=== PATIENT | female | born 1995 | race Caucasian/White ===

== ENCOUNTER 2023-04-19 03:45 | Inpatient (IN) | payer OTHER ==
[2023-04-19] MEDS ORDERED: OXYTOCIN 30 UNITS in 0.9% NS 30 UNIT/500 ML INFUS.BAG IVPB ONE (08:27)
[2023-04-19] MEDS ORDERED: AMPICILLIN SODIUM 2 GM VIAL ONE (08:40)
[2023-04-19] MEDS ORDERED: AMPICILLIN - 2 GM in SODIUM CHLORIDE 100 ML IVPB ONE (08:40)
[2023-04-19] MEDS ORDERED: OXYTOCIN 30 UNITS in 0.9% NS 30 UNIT/500 ML INFUS.BAG IVPB SCH (08:45)
[2023-04-19] MEDS ORDERED: ELECTROLYTE-148 SOLN 1,000 ML IV SCH (08:45)
[2023-04-19 09:24] LABS: BASO % 0.2 % (0-2.0); EOS % 0.3 % (0-4.5); HEMATOCRIT 31.6 % (32.4-45.2); HEMOGLOBIN 10.3 GM/dL (10.7-15.3); LYMPH % 22.1 % (8-40); MCH 26.7 pg (25.7-33.7); MCHC 32.6 g/dl (32.0-36.0); MEAN PLT VOLUME 10.4 fl (7.5-11.1); MONO % 7.8 % (3.8-10.2); NEUT % 69.6 % (42.8-82.8); PLATELET COUNT 128 10^3/uL (134-434); RBC 3.85 M/mm3 (3.60-5.2); RDW 16.9 % (11.6-15.6)
[2023-04-19 09:33] LABS: INR 1.04 (0.83-1.09); PROTHROMBIN TIME (PATIENT) 12.1 SEC (9.7-13.0)
[2023-04-19 09:51] LABS: CALCIUM 9.6 mg/dL (8.5-10.1)
[2023-04-19 09:52] LABS: BLOOD UREA NITROGEN 7.7 mg/dL (7-18)
[2023-04-19 09:55] LABS: CREATININE 0.6 mg/dL (0.55-1.3)
[2023-04-19 10:58] VITALS: BMI 27.3
[2023-04-19] MEDS: AMPICILLIN - 1 GM in SODIUM CHLORIDE 100 ML IVPB SCH (14:23)
[2023-04-19] MEDS ORDERED: FENTANYL/BUPIVACAINE/NS/PF - PCEA - 50 ML DISP.SYRIN EP ONE (18:29)
[2023-04-19] MEDS ORDERED: BUPIVACAINE HCL/PF 0.25% (2.5MG/ML) 10 ML VIAL ONE (18:39)
[2023-04-19] MEDS ORDERED: LIDO 2%/EPI 1:200000 PRESRVFRE (20 ML SDVIAL) ONE (18:39)
[2023-04-19] MEDS ORDERED: NALOXONE HCL 0.4 MG/ML VIAL IVPUSH PRN (19:03)
[2023-04-19] MEDS ORDERED: FENTANYL/BUPIVACAINE/NS/PF - PCEA - 50 ML DISP.SYRIN EP SCH (19:15)
[2023-04-19] MEDS ORDERED: LIDOCAINE HCL 1% PRESERVATIVE FREE - 30ML VIAL ONE (20:29)
[2023-04-19] MEDS ORDERED: OXYTOCIN 20 UNITS in 0.9% NS 20 UNIT/1,000 ML INFUS.BAG IV ONE (20:29)
[2023-04-19] MEDS ORDERED: WITCH HAZEL 50% (TUCKS) 40 PAD/JAR PAD TP PRN (23:16)
[2023-04-19] MEDS ORDERED: BISACODYL 10 MG SUPP.RECT RC PRN (23:16)
[2023-04-19] MEDS ORDERED: METHYLERGONOVINE MALEATE 0.2 MG/1 ML AMP IM PRN (23:16)
[2023-04-19] MEDS ORDERED: BENZOCAINE 28 GM HEMORRHOIDAL OINTMENT TP PRN (23:16)
[2023-04-19] MEDS ORDERED: ACETAMINOPHEN 325 MG TABLET (FP) PO PRN (23:16)
[2023-04-19] MEDS ORDERED: oxyCODONE HCL 5 MG TABLET PO PRN (23:16)
[2023-04-19] MEDS ORDERED: BENZOCAINE 20% 57 GM BOTTLE TP PRN (23:16)
[2023-04-19] MEDS ORDERED: METHYLERGONOVINE MALEATE 0.2 MG/1 ML AMP IM ONE (23:17)
[2023-04-19 23:23] LABS: CORD BASE EXCESS -5.9 mmol/L (0-2); CORD HCO3 21.1 mmHg (20-29); CORD PCO2 46.9 mmHg (30-78); CORD pH 7.271 (7.14-7.44)
[2023-04-19 23:26] LABS: CORD HCO3 21.7 mmHg (20-29); CORD PCO2 55.4 mmHg (30-78); CORD pH 7.211 (7.14-7.44)
[2023-04-19] MEDS ORDERED: OXYTOCIN 20 UNITS in 0.9% NS 20 UNIT/1,000 ML INFUS.BAG IV SCH (23:30)
[2023-04-20] MEDS ORDERED: oxyCODONE HCL 5 MG TABLET ONE (00:39)
[2023-04-20] MEDS: AMPICILLIN - 1 GM in SODIUM CHLORIDE 100 ML IVPB SCH (03:03)
[2023-04-20 08:18] LABS: BASO % 0.1 % (0-2.0); EOS % 0.1 % (0-4.5); HEMATOCRIT 26.7 % (32.4-45.2); HEMOGLOBIN 8.6 GM/dL (10.7-15.3); LYMPH % 9.6 % (8-40); MCH 27.1 pg (25.7-33.7); MCHC 32.1 g/dl (32.0-36.0); MEAN CELL VOLUME 84.2 fl (80-96); MEAN PLT VOLUME 10.8 fl (7.5-11.1); MONO % 7.2 % (3.8-10.2); PLATELET COUNT 118 10^3/uL (134-434); RBC 3.17 M/mm3 (3.60-5.2); RDW 17.8 % (11.6-15.6); WHITE BLOOD COUNT 15.6 K/mm3 (4.0-10.0)
[2023-04-20] MEDS: IBUPROFEN 600 MG TABLET (FP) PO PRN ×3 (08:58→22:02)
[2023-04-20] MEDS ORDERED: SENNOSIDES/DOCUSATE COMBO (SENNA PLUS) TABLET (UD) PO PRN (22:00)
[2023-04-20 22:39] VITALS: RESP 18
[2023-04-21 08:21] VITALS: BP 100/63; PULSE 94; TEMP 98.2
[2023-04-21] MEDS: IBUPROFEN 600 MG TABLET (FP) PO PRN (09:31)
== END 2023-04-21 14:30 | disposition home or self-care (01) | DRG 560 ==
LOC: JDEL 03:45 → JLDR 08:00 → J3W 04-20 01:47
PROVIDERS: ADMIT Obstetrics & Gynecology; ATTEND Obstetrics & Gynecology
PROC: 10E0XZZ Delivery of Products of Conception, External Approach (ICD-10-PCS; principal; 2023-04-19)
PROC: 0W8NXZZ Division of Female Perineum, External Approach (ICD-10-PCS; 2023-04-19)
DX: O80 Encounter for full-term uncomplicated delivery (principal); Z3A.40 40 weeks gestation of pregnancy; Z37.0 Single live birth
CPT/HCPCS: 36415; 36600; 59025; 76819-TC; 80048; 82803; 83986-QW; 85025; 85610; 85730; 86780; 86850; 86900; 86901